=== PATIENT | female | born 1965 ===

== ENCOUNTER 2025-10-27 11:53 | Outpatient (REF) | payer BC, SELFPAY ==
[2025-10-27 15:53] LABS: HCT 28.7 % (36.0-46.0); HGB 8.1 g/dL (11.2-15.7); MCH 24.0 pg (27.0-33.0); MCHC 28.2 % (32.0-36.0); MCV 85 fL (80-95); MPV 10.3 fL (8.0-11.0); Platelet Count 118 10^3/uL (130-400); RBC 3.37 10^6/uL (3.93-5.22); RDW-SD 56.1 fL; WBC 2.40 10^3/uL (4.4-10.8)
[2025-10-27 16:12] LABS: INR 1.1 (0.9-1.1); Prothrombin Time 11.0 sec (9.1-11.1); RDW 18.3 % (11.7-14.6)
[2025-10-27 16:51] LABS: ALT 93 U/L (10-49); AST 98 U/L (<34); Albumin 3.4 g/dL (3.2-5.0); Alkaline Phosphatase 94 U/L (46-116); Anion Gap 8.8 mmol/L (3-11); BUN < 5 mg/dL (9-23); Bilirubin, Total 0.7 mg/dL (0.2-1.2); CO2 24.2 mmol/L (20.0-31.0); Calcium 8.8 mg/dL (8.3-10.6); Chloride 107 mmol/L (98-107); Glucose 78 mg/dL (74-106); Potassium 4.0 mmol/L (3.5-5.1); Sodium 140 mmol/L (136-145); Total Protein 8.7 g/dL (5.7-8.2)
== END 2025-10-27 11:54 | disposition home or self-care (01) ==
LOC: NCHCN 11:53
PROVIDERS: Visit Provider Internal Medicine
DX: K74.3 Primary biliary cirrhosis (principal)
CPT/HCPCS: 80053; 85027; 85610